=== PATIENT | female | born 1980 | race Caucasian/White ===

== ENCOUNTER 2020-01-24 09:15 | Emergency (ER) | payer OTHER, SELFPAY ==
--- NOTE | ~2020-01-24 | XR_ITS ---
EXAMINATION: XR knee LT min 4V EXAM DATE: 01/24/2020 10:17 INDICATION: Initial encounter following injury, with pain of the left knee anteriorly. TECHNIQUE: Left knee frontal, crosstable lateral, orthogonal oblique projections for interpretation. Additional sunrise projection. There are no prior studies for comparison. FINDINGS: No evidence osteochondral defect or joint body in the left knee joint. There is moderate patellar lateral tilt and subluxation. Edema of the left knee anteromedially. Small joint effusion. There are no acute fractures or dislocations identified. There is no subcutaneous gas. There are no radiopaque foreign bodies. IMPRESSION: 1. Moderate left patellar lateral tilt and subluxation. 2. Small joint effusion. Reviewed, dictated and finalized at location A. SFILL TECHNICIAN
[2020-01-24 09:50] VITALS: BP 126/82; PULSE 115; RESP 16; TEMP 36.8; O2SAT 100
--- NOTE | 2020-01-24 10:39 | ED.LOWEXIN ---
HPI - Extremity Injury (Lower) General Chief Complaint: Extremity Injury, Lower Stated Complaint: left knee pain due to fall Source: patient Mode of arrival: ambulatory Limitations: no limitations History of Present Illness HPI Narrative: Patient is a 39-year-old female who presents with left knee injury. Patient reports falling on left knee yesterday. Reports increased pain with ambulation and weightbearing. Reports dislocating same knee in past. She reports taking ibuprofen with moderate relief. She denies other injuries. MD complaint: knee injury Injury: Left: knee Related Data Home Medications Medication Instructions Recorded Confirmed buspirone 15 mg PO TID 01/24/20 01/24/20 hydroxyzine pamoate 50 mg PO BID 01/24/20 01/24/20 lurasidone [Latuda] 60 mg PO DAILY 01/24/20 01/24/20 prazosin 5 mg PO HS 01/24/20 01/24/20 quetiapine 100 mg PO BID 01/24/20 01/24/20 Allergies Allergy/AdvReac Type Severity Reaction Status Date / Time clindamycin Allergy Unknown Rash Verified 01/24/20 09:57 sulfamethizole Allergy Unknown Hives Verified 01/24/20 09:57 sulfamethoxazole Allergy Unknown rash and Verified 11/22/18 12:40 hives trimethoprim Allergy Unknown Hives Verified 01/24/20 09:57 Chocolate Allergy Mild Rash Uncoded 01/24/20 09:57 Review of Systems Review of Systems: Narrative: CONSTITUTIONAL: Denies fever, chills, or sweats. EYES: Denies visual changes, redness, or discharge. ENT: Denies rhinorrhea, congestion, sore throat, or otalgia. CARDIOVASCULAR: Denies chest pain, palpitations, or edema. RESPIRATORY: Denies cough or dyspnea. GASTROINTESTINAL: Denies abdominal pain, nausea, vomiting, or diarrhea. GENITOURINARY: Denies dysuria or hematuria. SKIN: Denies rash or itching. MUSCULOSKELETAL: Left knee pain NEUROLOGIC: Denies headache, numbness, dizziness, or weakness. PSYCHIATRIC: Denies anxiety or depression. [facility] Past Medical History Medical History Acne Alcoholism Anxiety Depression Palpitations Surgical History Surgical History H/O elbow surgery H/O LEEP Social History Social History (Updated 01/24/20 @ 10:45 by MILLICENT Patterson) Smoking status: Current every day smoker Tobacco type: cigarettes Alcohol intake: current Alcohol use details: History of alcoholism Substance use: never Living arrangements: with family Occupation/Education: unemployed Exam Narrative: Exam Narrative: GENERAL: Well-appearing, well-nourished, and in no acute distress. HEAD: Normocephalic, atraumatic. EYES: Nares clear. No rhinorrhea. TMs normal bilaterally. Throat normal. Uvula midline. CHEST: No respiratory distress. EXTREMITIES: Left knee: Medial ecchymosis and edema, tenderness with palpation, no gross deformity, positive pedal pulse and good capillary refill NEURO: No focal deficits. Alert and oriented x3. Gait steady. PSYCH: Normal affect. No signs of depression or anxiety. Course Vital Signs Vital signs: Vital Signs Temperature 36.8 C 01/24/20 09:50 Pulse Rate 115 H 01/24/20 09:50 Respiratory Rate 16 01/24/20 09:50 Blood Pressure 126/82 01/24/20 09:50 Pulse Oximetry 100 01/24/20 09:50 Temperature 36.8 C 01/24/20 09:50 Pulse Rate 115 H 01/24/20 09:50 Respiratory Rate 16 01/24/20 09:50 Blood Pressure 126/82 01/24/20 09:50 Pulse Oximetry 100 01/24/20 09:50 Reviewed Procedures Orthopedic Splinting/Casting Injury #1: Splinting/Casting Date: 01/24/20 Splinting/Casting Time: 10:50 Side: left Lower Extremity Injury Location: knee Lower Extremity Immobilizer: knee immobilizer Splint: prefabricated Pre-Formed: knee immobilizer Other Orthopedic Equipment: crutches Additional Comments: Patient instructed on care of splint. Positive pedal pulses, capillary refill intact. MDM - Extre
== END 2020-01-24 10:58 | disposition home or self-care (01) ==
PROVIDERS: Emergency Provider Nurse Practitioner; PCP Internal Medicine
DX: S83.002A Unspecified subluxation of left patella, initial encounter (principal); W19.XXXA Unspecified fall, initial encounter; F17.210 Nicotine dependence, cigarettes, uncomplicated; F41.9 Anxiety disorder, unspecified; F32.9 Major depressive disorder, single episode, unspecified
CPT/HCPCS: 73564; 99213; G0463; L1830

== ENCOUNTER 2021-01-01 18:34 | Emergency (ER) | payer OTHER, SELFPAY ==
[2021-01-01 18:38] VITALS: BP 157/97; PULSE 87; RESP 20; TEMP 36.8; O2SAT 98
--- NOTE | 2021-01-01 18:39 | ED.UPPEXIN ---
HPI - Extremity Injury (Upper) General Chief Complaint: Wound/Laceration Stated Complaint: finger injury Time Seen by Provider: 01/01/21 18:40 Source: patient and RN notes reviewed History of Present Illness HPI narrative: Patient is a 40-year-old female who presents the urgent care with complaints of a laceration to the left pinky finger. 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 Patient has applied pressure but otherwise has not taken or done anything [id number] for her injury. No other acute complaints. No acute distress noted. Patient aware of the plan of care. Some parts of this dictation were generated by voice recognition software and may contain typographical and/or grammatical inaccuracies. Related Data Home Medications Medication Instructions Recorded Confirmed buspirone 15 mg PO TID 01/24/20 02/01/20 hydroxyzine pamoate 50 mg PO BID 01/24/20 02/01/20 lurasidone [Latuda] 60 mg PO DAILY 01/24/20 02/01/20 prazosin 5 mg PO HS 01/24/20 02/01/20 vortioxetine [Trintellix] 10 mg PO DAILY 01/01/21 01/01/21 Allergies Allergy/AdvReac Type Severity Reaction Status Date / Time clindamycin Allergy Unknown Rash Verified 01/01/21 18:48 sulfamethizole Allergy Unknown Hives Verified 01/01/21 18:48 sulfamethoxazole Allergy Unknown rash and Verified 01/01/21 18:48 hives trimethoprim Allergy Unknown Hives Verified 01/01/21 18:48 Chocolate Allergy Mild Rash Uncoded 01/24/20 09:57 Review of Systems Review of Systems: CONSTITUTIONAL: Denies fever, chills, or sweats. EYES: Denies visual changes, redness, or discharge. ENT: Denies rhinorrhea, congestion, sore throat, or otalgia. CARDIOVASCULAR: Denies chest pain, palpitations, or edema. RESPIRATORY: Denies cough or dyspnea. GASTROINTESTINAL: Denies abdominal pain, nausea, vomiting, or diarrhea. GENITOURINARY: Denies dysuria or hematuria. SKIN: Reports of a laceration to the pinky finger of the left hand MUSCULOSKELETAL: Denies back pain, joint pain, or myalgia. NEUROLOGIC: Denies headache, numbness, or weakness. All other systems reviewed are negative, except as documented in HPI. [facility] Past Medical History Medical History Acne Alcoholism Anxiety BMI 26.0-26.9,adult Depression Palpitations Surgical History Surgical History H/O elbow surgery Dr. Ruvalcaba, date unknown H/O LEEP Social History Social History Smoking status: Current every day smoker Tobacco type: cigarettes Alcohol intake: current Alcohol use details: History of alcoholism Substance use: never Gender identity (if verbalized by the patient): Female Comments At the time of my signature, I reviewed and agree with the nursing past medical, surgical, social, and family history. There is no relevant family history pertinent to the patient complaint. Exam Narrative: GENERAL: This is a well-nourished, well-developed patient, in no apparent distress. HEAD: normocephalic, atraumatic. EYES: PERRL. Sclera clear/white. Vision is grossly intact. EARS: External ears normal NOSE: External nose normal with no obvious nasal discharge, nares without redness, no rhinorrhea. THROAT: Mucous membranes moist SKIN: 1 cm skin avulsion noted to the ulnar aspect of the fifth digit of the left hand, bleeding not controlled prior to arrival. Warm, intact with no suspicious lesions or rash, good texture and turgor. NEURO: awake, alert, and oriented to person, place and time. There were no obvious focal neurologic abnormalities. EXTREMITIES: Positive strong left radial pulse with capillary refill less than 2 seconds. Range of motion to left upper extremity within normal limits. Course Vital Signs Vital signs: Vital Signs Temperature 98.2 F 01/01/21 18:38 Pulse Rate 87 01/01/21 18:38
[2021-01-01 18:50] VITALS: BP 157/97; PULSE 87; RESP 20; TEMP 36.8; O2SAT 98
== END 2021-01-01 19:19 | disposition home or self-care (01) ==
PROVIDERS: Emergency Provider Nurse Practitioner Family
DX: S61.207A Unspecified open wound of left little finger without damage to nail, initial encounter (principal); W29.0XXA Contact with powered kitchen appliance, initial encounter; Y99.0 Civilian activity done for income or pay; F17.210 Nicotine dependence, cigarettes, uncomplicated; F41.9 Anxiety disorder, unspecified; F32.A Depression, unspecified
CPT/HCPCS: 99212; G0463

== ENCOUNTER 2021-03-21 08:42 | Emergency (ER) | payer OTHER, SELFPAY ==
--- NOTE | ~2021-03-21 | XR_ITS ---
EXAMINATION: XR chest 2V DATE: 03/21/2021 09:44 INDICATION: Cough and wheezing. TECHNIQUE: Frontal and lateral views of the chest were obtained. COMPARISON: Chest 2 views 03/07/2016 FINDINGS: The chest demonstrates clear lungs without pneumonia, pleural effusion, or pneumothorax. Th e heart size is normal. IMPRESSION: 1. No acute cardiopulmonary disease. Reviewed, dictated and finalized at location B. NESS PROCESS SPECIALIST
[2021-03-21 08:52] VITALS: BP 96/54; PULSE 64; RESP 20; TEMP 36.6; O2SAT 97
--- NOTE | 2021-03-21 09:30 | ED.URI ---
HPI - URI/Sore Throat General Chief Complaint: Upper Respiratory Infection Stated Complaint: Sore throat, cough, congestion Source: patient Mode of arrival: ambulatory Limitations: no limitations History of Present Illness HPI Narrative: 40-year-old female presents to [facility] care with complaints of sore throat, productive cough, burning sensation in her chest and wheezing for the past 3 days. Patient reports that she does have a history of bronchitis. Patient does smoke. Patient denies fever, bodies, chills, nausea, vomiting or diarrhea. Patient denies sick contacts. Patient denies recent travel. Patient reports that she was hospitalized approximately 54 days ago due to alcoholism. MD elicited complaint: cough and sore throat Onset (ago): day(s) (3) Able to tolerate fluids by mouth: Yes Exacerbating factors: nothing Associated symptoms: denies other symptoms Treatments prior to arrival: none Related Data Home Medications Medication Instructions Recorded Confirmed buspirone 15 mg PO TID 01/24/20 03/21/21 lurasidone [Latuda] 60 mg PO DAILY 01/24/20 03/21/21 vortioxetine [Trintellix] 10 mg PO DAILY 01/01/21 03/21/21 folic acid 1 mg PO DAILY 03/21/21 03/21/21 losartan 50 mg PO DAILY 03/21/21 03/21/21 metoprolol succinate 50 mg PO DAILY 03/21/21 03/21/21 spironolactone 25 mg PO DAILY 03/21/21 03/21/21 Allergies Allergy/AdvReac Type Severity Reaction Status Date / Time clindamycin Allergy Unknown Rash Verified 03/21/21 09:44 sulfamethizole Allergy Unknown Hives Verified 03/21/21 09:44 sulfamethoxazole Allergy Unknown rash and Verified 03/21/21 09:44 hives trimethoprim Allergy Unknown Hives Verified 03/21/21 09:44 Chocolate Allergy Mild Rash Uncoded 03/21/21 09:44 Review of Systems Constitutional: Constitutional: Denies chills, Denies fever(s) and Denies weakness ENT: Denies dysphagia, Denies vertigo, Denies dizziness and Reports sore throat Cardiovascular: Cardiovascular: Denies chest pain Respiratory: Respiratory: Reports cough, Denies dyspnea and Reports wheezing Gastrointestinal: Gastrointestinal: Denies abdominal pain, Denies diarrhea, Denies nausea and Denies vomiting Integumentary/Breasts: Skin/Breast: Denies rash PMFSH Past Medical History Medical History Acne Alcoholism Anxiety BMI 26.0-26.9,adult Depression Palpitations Surgical History Surgical History H/O elbow surgery Dr. Ruvalcaba, date unknown H/O LEEP Social History Social History Smoking status: Current every day smoker Tobacco type: cigarettes Alcohol intake: current Alcohol use details: History of alcoholism Substance use: never Gender identity (if verbalized by the patient): Female Comments At time of signature, I agree with nursing past medical, surgical, social and family history. There is no relevant family history pertinent to the presenting complaint. Exam Const: General: healthy appearing and no acute distress Orientation/consciousness: patient oriented x3 HENMT: Head: normal to inspection Ears: EAC's normal General nose exam: Normal nares present Face and sinus: normal facial exam Mouth: Yes moist mucous membranes Throat: uvula midline Neck: Neck: normal visual inspection Chest: Chest palpation & inspection: normal inspection of the chest Resp: Effort & Inspection: normal respiratory effort Other: Decreased lung sounds noted throughout. Scant amount of wheezing noted to lower lobes. Cardio: Rate: regular rate Rhythm: regular rhythm Skin: General skin exam: normal color Rashes: no rashes Wounds: no wounds Neuro: General: patient oriented x3, moves all extremities and no meningeal signs Psych: Mental Status: mental status grossly normal Affect: normal affect Attitude: cooperative Course Course Level of Care: Express Care V
== END 2021-03-21 10:11 | disposition home or self-care (01) ==
PROVIDERS: Emergency Provider Nurse Practitioner Family
DX: J40 Bronchitis, not specified as acute or chronic (principal); Z20.822 Contact with and (suspected) exposure to COVID-19; F17.210 Nicotine dependence, cigarettes, uncomplicated; F41.9 Anxiety disorder, unspecified; F32.A Depression, unspecified
CPT/HCPCS: 71046; 87426; 99213; C9803; G0463

== ENCOUNTER 2021-05-15 10:40 | Emergency (ER) | payer OTHER, SELFPAY ==
[2021-05-15 10:46] VITALS: BP 134/76; PULSE 102; RESP 14; TEMP 36.8; O2SAT 98
--- NOTE | 2021-05-15 11:09 | ED.URI ---
HPI - URI/Sore Throat General Chief Complaint: Upper Respiratory Infection Stated Complaint: Cough/Chest Congestion/Sore Throat Time Seen by Provider: 05/15/21 11:09 Source: patient and RN notes reviewed Mode of arrival: ambulatory Limitations: no limitations History of Present Illness HPI Narrative: 40 y/o female presented for c/o cough, chest tightness and Post nasal drainage x3 days. Cough is productive of thick yellow sputum. She currently smokes 1 pack/day. Has not taken anything [id number] to help with symptoms but endorses steroid and Tessalon Perles have helped in the past for similar symptoms. She is not boosted for Covid or vaccinated flu. Denies body aches, increased sob, malaise, f/c. MD elicited complaint: cough Related Data Home Medications Medication Instructions Recorded Confirmed buspirone 15 mg PO TID 01/24/20 05/15/21 lurasidone [Latuda] 60 mg PO DAILY 01/24/20 05/15/21 vortioxetine [Trintellix] 10 mg PO DAILY 01/01/21 05/15/21 losartan 50 mg PO DAILY 03/21/21 05/15/21 metoprolol succinate 50 mg PO DAILY 03/21/21 05/15/21 spironolactone 25 mg PO DAILY 03/21/21 05/15/21 Allergies Allergy/AdvReac Type Severity Reaction Status Date / Time clindamycin Allergy Unknown Rash Verified 05/15/21 10:55 sulfamethizole Allergy Unknown Hives Verified 05/15/21 10:55 sulfamethoxazole Allergy Unknown rash and Verified 05/15/21 10:55 hives trimethoprim Allergy Unknown Hives Verified 05/15/21 10:55 Chocolate Allergy Mild Rash Uncoded 03/21/21 09:44 Review of Systems Review of Systems: CONSTITUTIONAL: denies malaise, chills, sweats, fever EYES: Denies visual changes, redness, or discharge ENT: Reports rhinorrhea, sore throat CARDIOVASCULAR: Denies chest pain, palpitations, edema RESPIRATORY: Reports cough, post nasal drainage. Denies dyspnea GASTROINTESTINAL: Denies abdominal pain, nausea, vomiting, diarrhea SKIN: Denies rash or itching MUSCULOSKELETAL: denies myalgia NEUROLOGIC: Denies headache PMFSH Past Medical History Medical History Acne Alcoholism Anxiety BMI 26.0-26.9,adult Depression Palpitations Surgical History Surgical History H/O elbow surgery Dr. Ruvalcaba, date unknown H/O LEEP Social History Social History Smoking status: Current every day smoker Tobacco type: cigarettes Alcohol intake: current Alcohol use details: History of alcoholism Substance use: never Gender identity (if verbalized by the patient): Female Exam Narrative: GENERAL: appears older than stated age, Ill-appearing, nontoxic no acute distress. HEAD: Normocephalic EYES: PERRLA, conjunctivae clear ENT: Mucous membranes moist. TM pearly [place] with dull light reflex bilaterally; no tragal tenderness. Oropharynx erythematous without lesions or exudate, no drooling, no hoarseness, no trismus, uvula midline. No tripod positioning, muffled voice, soft palate or pharyngeal wall bulging NECK: Supple. No lymphadenopathy CHEST: Clear/diminished to auscultation, breath sounds equal. No wheezing, rhonchi, rales, or stridor. No respiratory distress, speaks in full sentences. HEART: Regular rate and rhythm. No murmur heard. SKIN: Warm, dry, no rash. NEURO: Alert and oriented x3. PSYCH: Normal mood and affect Course Course Emergency Course: Patient is aware of diagnosis, understands and agrees to treatment plan. Anticipatory guidance given. Patient agrees to follow-up as directed and is aware of reasons to seek care at the emergency department. Portions of this record may have been created with voice recognition software Level of Care: Express Care Visit Vital Signs Vital signs: Vital Signs Temperature 98.3 F 05/15/21 10:46 Pulse Rate 102 H 05/15/21 10:46 Respiratory Rate 14 05/15/21 10:46 Blood Pressure 134/76 05/15/21 10:46
== END 2021-05-15 11:28 | disposition home or self-care (01) ==
PROVIDERS: Emergency Provider Nurse Practitioner Family; PCP Internal Medicine
DX: J06.9 Acute upper respiratory infection, unspecified (principal); F17.210 Nicotine dependence, cigarettes, uncomplicated; F41.9 Anxiety disorder, unspecified; F32.A Depression, unspecified
CPT/HCPCS: 99213; G0463

== ENCOUNTER 2022-04-18 09:47 | Emergency (ER) | payer OTHER, SELFPAY ==
--- NOTE | 2022-04-18 09:50 | ED.SKABFB ---
HPI - Skin/Abscess/Foreign Bdy General Chief complaint: Skin/Abscess/Foreign Body Stated complaint: cyst on left butt cheek Time Seen by Provider: 04/18/22 09:49 Source: patient Mode of arrival: ambulatory Limitations: no limitations History of Present Illness HPI narrative: Micaela is a 41-year-old female patient presenting to the clinic today with complaints of a possible cyst on her left inner butt cheek x2 days. She reports she has had the cyst in the past and has had them removed. This area has gotten bigger in size and more painful. She is having difficulty sitting due to the pain. She denies any fever or chills. Related Data Home Medications Medication Instructions Recorded Confirmed buspirone 15 mg tablet 15 mg PO TID 01/24/20 04/18/22 lurasidone 60 mg tablet (Latuda) 60 mg PO DAILY 01/24/20 04/18/22 vortioxetine 10 mg tablet 10 mg PO DAILY 01/01/21 04/18/22 (Trintellix) losartan 50 mg tablet 50 mg PO DAILY 03/21/21 04/18/22 metoprolol succinate 50 mg 50 mg PO DAILY 03/21/21 04/18/22 tablet,extended release 24 hr spironolactone 25 mg tablet 25 mg PO DAILY 03/21/21 04/18/22 Allergies Allergy/AdvReac Type Severity Reaction Status Date / Time chocolate flavor Allergy Unknown Unknown Verified 04/18/22 10:05 clindamycin Allergy Unknown Rash Verified 04/18/22 10:03 sulfamethizole Allergy Unknown Hives Verified 04/18/22 10:03 sulfamethoxazole Allergy Unknown rash and Verified 04/18/22 10:03 hives trimethoprim Allergy Unknown Hives Verified 04/18/22 10:03 Review of Systems Review of Systems: Pertinent positives per HPI. Patient denies any fever, chills, rash, headache, visual changes, dizziness, cough, runny nose, sore throat, shortness of breath, chest pain, palpitations, nausea, vomiting, diarrhea, constipation, abdominal pain, or any urinary issues. [facility] Past Medical History Medical History Acne Alcoholism Anxiety BMI 26.0-26.9,adult Depression Palpitations Surgical History Surgical History H/O elbow surgery Dr. Ruvalcaba, date unknown H/O SHARON Social History Social History Smoking status: Current every day smoker Tobacco type: cigarettes Alcohol intake: current Alcohol use details: History of alcoholism Substance use: never Living arrangements: with family Occupation/Education: unemployed Gender identity (if verbalized by the patient): Female Comments At the time of my signature, I reviewed and agree with the nursing past medical, surgical, social, and family history. There is no relevant family history pertinent to the patient complaint. Exam Narrative: General: Well-developed, well nourished, in no apparent distress Head: Normocephalic, atraumatic. Cardio: Regular rate and rhythm, s1 and s2 normal, no murmur appreciated. Resp: Clear to auscultation bilaterally, no rhonchi, rales, wheezing or rubs. Integumentary: [place], warm, dry, red, erythemic, tender, indurated abscess measuring 3 x 3 cm to the left inferior medial gluteal Course Course Emergency Course: Portions of this record may have been created with voice recognition software. Level of Care: Express Care Visit Vital Signs Vital signs: Vital Signs Temperature 36.5 C 04/18/22 09:56 Pulse Rate 83 04/18/22 09:56 Respiratory Rate 16 04/18/22 09:56 Blood Pressure 119/83 04/18/22 09:56 Pulse Oximetry 98 04/18/22 09:56 Oxygen Delivery Room Air 04/18/22 09:56 Temperature 36.5 C 04/18/22 09:56 Pulse Rate 83 04/18/22 09:56 Respiratory Rate 16 04/18/22 09:56 Blood Pressure 119/83 04/18/22 09:56 Pulse Oximetry 98 04/18/22 09:56 Oxygen Delivery Room Air 04/18/22 09:56 Vital signs reviewed Procedures Abscess I/D left medial glut: Date of Incision: 04/18/22 Side (if mel
[2022-04-18 09:56] VITALS: BP 119/83; PULSE 83; RESP 16; TEMP 36.5; O2SAT 98
== END 2022-04-18 10:35 | disposition home or self-care (01) ==
PROVIDERS: Emergency Provider Nurse Practitioner Family; PCP Internal Medicine
DX: L02.31 Cutaneous abscess of buttock (principal); F41.9 Anxiety disorder, unspecified; F32.A Depression, unspecified; F17.210 Nicotine dependence, cigarettes, uncomplicated
CPT/HCPCS: 10060; 87070; 87205; 99213; G0463

== ENCOUNTER 2023-02-06 13:16 | Emergency (ER) | payer OTHER, SELFPAY ==
[2023-02-06 13:21] VITALS: BP 132/72; PULSE 76; RESP 16; TEMP 36.6; O2SAT 100
--- NOTE | 2023-02-06 13:53 | ED.URI ---
HPI - URI/Sore Throat General Chief Complaint: Upper Respiratory Infection Stated Complaint: Congestion/Sore Throat Time Seen by Provider: 02/06/23 13:30 Source: patient Mode of arrival: ambulatory Limitations: no limitations History of Present Illness HPI Narrative: Micaela is a 42-year-old female patient presenting to clinic today with complaints of cough and congestion for the past week. Reports that she started developing a sore throat 1-2 days ago. No known fever or chills. MD elicited complaint: sore throat and nasal congestion Related Data Home Medications Medication Instructions Recorded Confirmed buspirone 15 mg tablet 15 mg PO TID 01/24/20 02/06/23 lithium carbonate 300 mg 300 mg PO DIRECTED 02/06/23 02/06/23 tablet,extended release quetiapine 100 mg tablet (Seroquel) 100 mg DIRECTED 02/06/23 02/06/23 Allergies Allergy/AdvReac Type Severity Reaction Status Date / Time chocolate flavor Allergy Unknown Unknown Verified 04/18/22 10:05 clindamycin Allergy Unknown Rash Verified 04/18/22 10:03 sulfamethizole Allergy Unknown Hives Verified 04/18/22 10:03 sulfamethoxazole Allergy Unknown rash and Verified 04/18/22 10:03 hives trimethoprim Allergy Unknown Hives Verified 04/18/22 10:03 Review of Systems Review of Systems: Pertinent positives per HPI. Patient denies any fever, chills, rash, headache, visual changes, dizziness, shortness of breath, chest pain, palpitations, nausea, vomiting, diarrhea, constipation, abdominal pain, or any urinary issues. COUNT INCLUDES THE [facility] Past Medical History Medical History Acne Alcoholism Anxiety BMI 26.0-26.9,adult Depression Palpitations Surgical History Surgical History H/O elbow surgery Dr. Ruvalcaba, date unknown H/O SHARON Social History Social History Smoking status: Current every day smoker Tobacco type: cigarettes Alcohol intake: current Alcohol use details: History of alcoholism Substance use: never Living arrangements: with family Occupation/Education: unemployed Gender identity (if verbalized by the patient): Female Comments At the time of my signature, I reviewed and agree with the nursing past medical, surgical, social, and family history. There is no relevant family history pertinent to the patient complaint. Exam Narrative: General: Well-developed, well nourished, in no apparent distress Head: Normocephalic, atraumatic Eyes: Pupils equally round and reactive to light bilaterally, EOM intact, sclera and conjunctive clear, no discharge, lids normal Ears: TMs intact and congested, ear canals clear, no drainage, grossly hearing normal. Nose: Nares patent, clear discharge, mild inflammation, no sinus tenderness. Mouth: Oral pharynx red without lesions or masses, good dentition, MMM. Postnasal drip Neck: Supple, trachea midline, no enlargement of anterior or posterior cervical nodes, no thyroid masses or goiter palpable. Cardio: Regular rate and rhythm, s1 and s2 normal, no murmur appreciated. Resp: Clear to auscultation bilaterally, no rhonchi, rales, wheezing or rubs Course Course Emergency Course: Portions of this record may have been created with voice recognition software. Level of Care: Express Care Visit Vital Signs Vital signs: Vital Signs Temperature 36.6 C 02/06/23 13:21 Pulse Rate 76 02/06/23 13:21 Respiratory Rate 16 02/06/23 13:21 Blood Pressure 132/72 02/06/23 13:21 Pulse Oximetry 100 02/06/23 13:21 Oxygen Delivery Room Air 02/06/23 13:21 Temperature 36.6 C 02/06/23 13:21 Pulse Rate 76 02/06/23 13:21 Respiratory Rate 16 02/06/23 13:21 Blood Pressure 132/72 02/06/23 13:21 Pulse Oximetry 100 02/06/23 13:21 Oxygen Delivery Room Air 02/06/23 13:21 Vital signs reviewed MDM - URI/Sore Th
== END 2023-02-06 14:34 | disposition home or self-care (01) ==
PROVIDERS: Emergency Provider Nurse Practitioner Family; PCP Internal Medicine
DX: J06.9 Acute upper respiratory infection, unspecified (principal); J02.9 Acute pharyngitis, unspecified; F17.200 Nicotine dependence, unspecified, uncomplicated; F41.9 Anxiety disorder, unspecified; F32.A Depression, unspecified
CPT/HCPCS: 87081; 87880; 99213; G0463

== ENCOUNTER 2023-11-03 09:03 | Emergency (ER) | payer OTHER, SELFPAY ==
[2023-11-03 09:26] VITALS: BP 97/65; PULSE 70; RESP 18; TEMP 37.1; O2SAT 100
--- NOTE | 2023-11-03 09:52 | ED.ABDPAIN ---
HPI - Abdominal Pain General Chief Complaint: Upper Respiratory Infection Stated Complaint: Sore Throat/Chest Congestion History of Present Illness HPI narrative: Patient is a 44-year-old female, presents to [facility] with her daughter who has similar symptoms, with 3 day history of rhinorrhea, nasal congestion, sore throat and malaise. She denies associated fevers or chills. She has no cough. She is taking [id number] medications without much relief. She denies any additional associated symptoms modifying factors. She is not . Related Data Home Medications Medication Instructions Recorded Confirmed buspirone 15 mg tablet 15 mg PO TID 01/24/20 11/03/23 lithium carbonate 300 mg 300 mg PO DIRECTED 02/06/23 11/03/23 tablet,extended release quetiapine 100 mg tablet (Seroquel) 100 mg DIRECTED 02/06/23 11/03/23 Allergies Allergy/AdvReac Type Severity Reaction Status Date / Time chocolate flavor Allergy Unknown Unknown Verified 11/03/23 09:54 clindamycin Allergy Unknown Rash Verified 11/03/23 09:54 sulfamethizole Allergy Unknown Hives Verified 11/03/23 09:54 sulfamethoxazole Allergy Unknown rash and Verified 11/03/23 09:54 hives trimethoprim Allergy Unknown Hives Verified 11/03/23 09:54 Review of Systems ENT: Comments: Refer to [facility] Past Medical History Medical History Acne Alcoholism Anxiety BMI 26.0-26.9,adult Depression Palpitations Surgical History Surgical History H/O elbow surgery Dr. Ruvalcaba, date unknown H/O [facility] Social History Social History Smoking status: Current every day smoker Tobacco type: cigarettes Alcohol intake: current Alcohol use details: History of alcoholism Substance use: never Living arrangements: with family Occupation/Education: unemployed Gender identity (if verbalized by the patient): Female Exam Const: General: healthy appearing and no acute distress Nutritional Appearance: well nourished Orientation/consciousness: patient oriented x3 Limitations: no limitations HENMT: Head: normal to inspection Ears: external ears normal and TM abnormal other ( patient has serous effusion bilaterally) Mouth: Yes Normal oral and palatal mucosa present, Yes lip normal and Yes moist mucous membranes Throat: uvula midline Other: pharyngeal injection noted, no tonsillar hypertrophy, no exudate noted Eyes: Conjunctivae: conjunctivae normal EOM: EOMs intact bilaterally Neck: Neck: normal visual inspection, no lymphadenopathy and no meningeal signs Resp: Effort & Inspection: normal respiratory effort Auscultation: clear to auscultation bilaterally Cardio: Rate: regular rate Rhythm: regular rhythm Back/Spine/Pelvis: Back: no CVA tenderness Skin: General skin exam: normal color Rashes: no rashes Wounds: no wounds Neuro: General: patient oriented x3, moves all extremities, no meningeal signs, no focal motor deficits and CN's II-XI intact bilaterally Cranial nerves: Yes Nystagmus not present Speech: normal speech Extrem: General: normal to inspection Course Course Emergency Course: strep screen is negative, will reflux for culture. No plan to treat supportively with Zyrtec or Claritin as directed [id number], Flonase, Tylenol and ibuprofen may be added for an additional symptom relief. Follow up with PCP in 3-5 days if symptoms are not resolving. Patient is agreeable plan. Level of Care: [facility] Visit ([id number]) Vital Signs Vital signs: Vital Signs Temperature 37.1 C 11/03/23 09:26 Pulse Rate 70 11/03/23 09:26 Respiratory Rate 18 11/03/23 09:26 Blood Pressure 97/65 L 11/03/23 09:26 Pulse Oximetry 100 11/03/23 09:26 Oxygen Delivery Room Air 11/03/23 09:26 Temperature 37.1 C 11/03/23 09:26 Pulse Rate
[2023-11-03 10:00] LABS: EDSTREPNEGPOS1 Negative
== END 2023-11-03 10:05 | disposition home or self-care (01) ==
PROVIDERS: Emergency Provider Nurse Practitioner Family
DX: J06.9 Acute upper respiratory infection, unspecified (principal); F17.210 Nicotine dependence, cigarettes, uncomplicated; F41.9 Anxiety disorder, unspecified; F32.A Depression, unspecified
CPT/HCPCS: 87081; 87880; 99213; G0463